=== PATIENT | male | born 1980 | race Caucasian/White ===

== ENCOUNTER 2019-02-01 01:47 | Emergency (ER) | payer OTHER, MEDICAID, SELFPAY ==
[2019-02-01 01:50] VITALS: PULSE 72; RESP 15; TEMP 36.4; O2SAT 99; BMI 32.1
--- NOTE | 2019-02-01 01:58 | ED.DENTAL ---
HPI - Dental/Oral General Stated complaint: RIGHT FACE SWELLING, POSS INFECTED TOOTH Time Seen by Provider: 02/01/19 01:49 Source: patient Mode of arrival: ambulatory Limitations: no limitations History of Present Illness HPI Narrative: Patient is a 38-year-old male here for evaluation of right upper tooth pain and facial swelling. He states that several days ago he cracked a tooth. He states since then he has had pain and swelling. He did take a Vicodin prior to arrival here in the emergency department. He is yet to see a dentist regarding this issue. Related Data Previous Rx's Medication Instructions Recorded clindamycin HCl 300 mg PO Q6H 7 Days #28 cap 02/01/19 Allergies Allergy/AdvReac Type Severity Reaction Status Date / Time Penicillins Allergy Verified 02/01/19 01:59 Review of Systems Constitutional Denies fever(s) and Denies headache(s) ENT Ears, Nose, Mouth, and Throat: Denies headache(s), Denies neck pain and Denies sore throat Comments: Right sided facial swelling Cardiovascular Denies dyspnea Respiratory Denies dyspnea Musculoskeletal Denies neck pain Integumentary/Breasts Denies rash Neurologic Denies headache(s) Hematologic/Lymphatic Denies easy bleeding and Denies easy bruising FORMERLY [facility], [facility] Medical History Healthy adult (Acute) Social History lives independently: Yes Smoking Status: Current every day smoker Social History lives independently: Yes Smoking Status: Current every day smoker Exam Const General: cooperative, comfortable, well developed, well groomed and No acute distress Orientation: alert, awake and oriented x3 HENMT Head: normal to inspection and normocephalic Ears: TM's normal bilaterally Nose: external nose normal Face and sinus: normal facial exam Teeth and gingiva: poor dentition and other (Right upper 1st molar fractured) Throat: posterior oropharynx normal and tonsils normal Resp Effort & Inspection: normal respiratory effort Skin Lesions: no lesions Rashes: no rashes Extrem General: normal to inspection and capillary refill normal Course Orders Ordered: Discontinued Medications Clindamycin HCl (Cleocin) 300 mg PO NOW ONE Stop: 02/01/19 01:55 Last Admin: 02/01/19 02:00 Dose: 300 mg MDM - Dental/Oral MDM Narrative Medical decision making narrative: Patient does have a right upper 1st molar that is fractured. He does have swelling over this area no drainable abscess seen here in the emergency department. Was sent home with a prescription of clindamycin. He is given return precautions. Instructed he needs to follow up with a dentist. He expressed understanding and agreement plan. Discharge Plan Departure Patient Disposition: Home Clinical Impression: Abscess, dental Instructions: Tooth Abscess Activity Restrictions/Additional Instructions: You were given your 1st dose of antibiotics here in the emergency department. Your next dose will be in the morning. You do need to see a dentist. Return to the emergency department for any new or worsening symptoms you can take Tylenol and/or ibuprofen for any discomfort. Prescriptions: New clindamycin HCl 300 mg capsule 300 mg PO Q6H 7 Days Qty: 28 RF: 0 Referrals: Lisette Carpio MD [Primary Care Provider] -
[2019-02-01] MEDS: CLINDAMYCIN 150 MG CAPSULE 300 MG PO (02:00)
== END 2019-02-01 02:05 | disposition home or self-care (01) ==
PROVIDERS: Emergency Provider Emergency Medicine; Family Provider Family Medicine; PCP Family Medicine
DX: K04.7 Periapical abscess without sinus (principal)
CPT/HCPCS: 99282; 99283

== ENCOUNTER 2019-06-15 09:21 | Emergency (ER) | payer OTHER, MEDICAID, SELFPAY ==
[2019-06-15 09:34] VITALS: BP 124/92; PULSE 85; RESP 16; TEMP 36.5; O2SAT 98
--- NOTE | 2019-06-15 10:20 | ED.BACK ---
HPI - Back Pain/Injury General Chief Complaint: Back Pain/Injury Stated Complaint: lower back pain x1 day Time Seen by Provider: 06/15/19 10:03 Source: patient Mode of arrival: Ambulatory Limitations: no limitations History of Present Illness HPI Narrative: Patient is a 38-year-old male who presents with left lumbar low back pain. It started last night fell sleep on the couch when he leaned over and something happened. It remains in 1 spot in his left buttock area and left lower lumbar area. No bowel changes. He has not taken anything for pain. MD Complaint: back pain Onset (ago): hour(s) Duration: constant Related Data Home Medications Medication Instructions Recorded Confirmed fluoxetine 10 mg PO DAILY 06/15/19 06/15/19 fluoxetine 20 mg PO DAILY 06/15/19 06/15/19 Previous Rx's Medication Instructions Recorded cyclobenzaprine 5 mg PO TID PRN #10 tab 06/15/19 Allergies Allergy/AdvReac Type Severity Reaction Status Date / Time Penicillins Allergy Verified 02/01/19 01:59 Review of Systems Review of Systems Narrative: GENERAL: Denies chills,fever HEENT: Denies throat pain RESPIRATORY: Denies dyspnea, cough, wheezing CARDIOVASCULAR: Denies chest pain, palpitations GASTROINTESTINAL: Denies nausea, vomiting MUSCULOSKELETAL: See HPI SKIN: No rash, no laceration, no pruritus NEUROLOGIC: Denies weakness, dizziness, headache, numbness 8 point review of systems is negative except for those stated above and HPI PFSH Social History lives independently: Yes Smoking Status: Current every day smoker Social History lives independently: Yes Smoking Status: Current every day smoker Exam Initial Vital Signs Initial Vital Signs: Vital Signs Temperature 97.7 F 06/15/19 09:34 Pulse Rate 85 06/15/19 09:34 Respiratory Rate 16 06/15/19 09:34 Blood Pressure 124/92 H 06/15/19 09:34 Pulse Oximetry 98 06/15/19 09:34 GENERAL: Well-appearing, well-nourished and in no acute distress. CARDIOVASCULAR: peripheral pulses in tact, cap refill <2 sec RESPIRATORY: No respiratory distress, speaks in full sentences without difficulty EXTREMITIES: Normal range of motion, no clubbing or edema. Neurovascularly intact BACK: No vertebral tenderness no step offs. Tender left lumbar and buttock area pain reproducible with palpation NEUROLOGICAL: Cranial nerves II through XII grossly intact. Normal gait and speech. SKIN: Warm, dry, no petechiae, no rashes or lesions. Course Orders Ordered: Discontinued Medications Ketorolac Tromethamine (Toradol) 30 mg IM NOW ONE Stop: 06/15/19 10:33 Last Admin: 06/15/19 11:20 Dose: 30 mg Documented by: AZRA Vital Signs Vital signs: Vital Signs - 8 hr 06/15/19 11:15 Pulse Rate 64 Respiratory Rate 15 Blood Pressure [Left Arm] 130/90 Pulse Oximetry 98 Discharge Plan Departure Patient Disposition: Home Clinical Impression: Low back pain Qualifiers: Chronicity: acute Back pain laterality: left Sciatica presence: without sciatica Qualified Code(s): M54.5 - Low back pain Discharge Date/Time: 06/15/19 11:30 Instructions: DI for Low Back Pain Activity Restrictions/Additional Instructions: *You have been diagnosed with low back *What to do: Increase activity as tolerated, light stretching is encouraged. No heavy lifting. *Continue to take medications as directed Motrin 800 mg every 8 hours if needed for [id number] pain Flexeril 5 mg every 8 hours if needed for muscle spasms can cause drowsiness do not drive or operate heavy machinery *Follow up with your primary care provider in 2-3 days *Return to ER if you should have increased weakness in the leg worsening pain or any new, worsening or concerning symptoms Prescriptions: New cyclobenzaprine 5 mg tablet 5 mg PO TID PRN (Reason: muscle spasm) Qty: 10 RF: 0 No Action fluoxetine 10 mg tablet 10 mg PO DAILY RF: 0 fluoxetine 20 mg capsule 20 mg PO DAILY RF: 0 Referrals: Lisette Carpio MD [Primary Care Provider] - Stand Alone Forms: Work Release Note
[2019-06-15 11:15] VITALS: BP 130/90; PULSE 64; RESP 15; O2SAT 98
[2019-06-15] MEDS: KETOROLAC 60 MG/2 ML VIAL 30 MG IM (11:20)
== END 2019-06-15 11:30 | disposition home or self-care (01) ==
PROVIDERS: Emergency Provider Emergency Medicine; Family Provider Family Medicine; PCP Family Medicine
DX: M54.5 Low back pain (principal)
CPT/HCPCS: 96372; 99282; 99283; J1885

== ENCOUNTER 2019-07-10 17:26 | Emergency (ER) | payer OTHER, MEDICAID, SELFPAY ==
[2019-07-10 17:35] VITALS: BP 155/95; PULSE 77; RESP 18; TEMP 36.7; O2SAT 96; BMI 33.0
[2019-07-10 18:45] VITALS: BP 150/80; PULSE 72; RESP 18; O2SAT 98
--- NOTE | 2019-07-10 21:07 | ED_ITS ---
HPI - Dental/Oral <SORAIDA Pop - Last Filed: 07/10/19 21:36> General Chief complaint: Dental/Oral Stated complaint: Thinks start of Abcess tooth Time Seen by Provider: 07/10/19 17:49 Source: patient Mode of arrival: Ambulatory Limitations: no limitations History of Present Illness HPI Narrative: This is a 38-year-old male, smoker, who presents to ED with dental pain and possible abscess on left upper upper tooth. Patient reports left-check discomfort and swelling. Patient denies fever, chills, nausea or vomiting, odorous drainage from the tooth. Patient is in process to be seen at [facility] dental clinic at [place] next week. Patient reports he had history of dental abscess and feels as he is having another early dental abscess. Patient has allergies to penicillin and used clindamycin in the past with success. Related Data Home Medications Medication Instructions Recorded Confirmed fluoxetine 10 mg PO DAILY 06/15/19 07/10/19 fluoxetine 20 mg PO DAILY 06/15/19 07/10/19 Previous Rx's Medication Instructions Recorded cyclobenzaprine 5 mg PO TID PRN #10 tab 06/15/19 clindamycin HCl 450 mg PO TID 7 Days #63 cap 07/10/19 Allergies Allergy/AdvReac Type Severity Reaction Status Date / Time Penicillins Allergy Verified 07/10/19 17:38 Review of Systems <SORAIDA Pop - Last Filed: 07/10/19 21:36> Review of Systems Narrative: General: Denies fever, chills, fatigue, malaise, sweats. HEENT: See HPI Respiratory: Denies dyspnea, cough, wheezing, hemoptysis, sputum. Cardiovascular: Denies chest pain, palpitations, orthopnea, edema. Gastrointestinal: Denies nausea, vomiting, abdominal pain, diarrhea, constipation, melena. : Denies dysuria, frequency, incontinence, hematuria, urinary retention. Musculoskeletal: Denies weakness, joint pain or bony pain. Skin: Denies rash, skin lesions, or other. Neurologic: Denies weakness, headache, numbness, change in speech, confusion, seizures, incoordination. Psychiatric: No concerning psychosocial issues. 12-point review of systems is negative except for those stated above. Patient History <SORAIDA Pop - Last Filed: 07/10/19 21:36> Medical History Healthy adult (Acute) Surgical History H/O thyroidectomy (Acute) Social History lives independently: Yes Smoking Status: Current every day smoker tobacco type: cigarettes alcohol intake frequency: 0-2 drinks per day Substance Use Type: marijuana Exam <SORAIDA Pop - Last Filed: 07/10/19 21:36> Narrative Exam Narrative: General appearance: well developed, well nourished, in no acute distress. Head: normocephalic, atraumatic, no scalp lesions, non-tender. Eye: pupil equal, round. EOMI. Nose: nares patent. Oral: mucosa moist. Neck/Thyroid: neck supple, full range of motion, no visible masses. Skin: no suspicious rashes, lesions over visible areas. Warm and dry. Heart: no clubbing, no cyanosis, no edema. Lungs: Breathing even and unlabored. No stridor. No accessory muscles used. Chest: normal shape and expansion. Abdomen: non-obese, non-distended. Neurologic: alert and oriented. Cognitive exam, [employer] and PNS grossly intact on informal exam. Psych: good eye contact, normal affect. Initial Vital Signs Initial Vital Signs: Vital Signs Temperature 98.0 F 07/10/19 17:35 Pulse Rate 77 07/10/19 17:35 Respiratory Rate 18 07/10/19 17:35 Blood Pressure 155/95 H 07/10/19 17:35 Pulse Oximetry 96 07/10/19 17:35 HENKS Face and sinus: edema on the left malar area and tenderness on the left malar area Mouth: oral mucosae normal, tongue normal and moist mucous membranes Teeth and gingiva: caries (L upper 1st molar), gingiva abnormal edematous, diffusely erythematous and tender; without any purulent discharge and poor dentition Throat: posterior oropharynx normal, tonsils normal and uvula midline <Morgan Poole DO - Last Filed: 07/11/19 07:07> Initial Vital Signs Initial Vital Signs: Vital Signs Temperature 98.0 F 07/10/19 17:35 Pulse Rate 77 07/10/19 17:35 Respiratory Rate 18 07/10/19 17:35 Blood Pressure 155/95 H 07/10/19 17:35 Pulse Oximetry 96 07/10/19 17:35 Course <Fredrick SantosSORAIDA graham - Last Filed: 07/10/19 21:36> Vital Signs Vital signs: Vital Signs - 8 hr 07/10/19 17:35 07/10/19 18:45 Temperature 98.0 F Pulse Rate 77 72 Respiratory Rate 18 18 Blood Pressure 155/95 H 150/80 H Pulse Oximetry 96 98 <Morgan Poole DO - Last Filed: 07/11/19 07:07> Vital Signs Vital signs: Vital Signs - 8 hr 07/10/19 17:35 07/10/19 18:45 Temperature 98.0 F Pulse Rate 77 72 Respiratory Rate 18 18 Blood Pressure 155/95 H 150/80 H Pulse Oximetry 96 98 MDM - Dental/Oral <Fredrick RodriguezangMiliSORAIDA graham - Last Filed: 07/10/19 21:36> Differential Diagnosis Differential diagnosis: Likely dental caries, toothache, dental abscess and fracture of tooth Medical Records Attestation: I reviewed the patient's medical records. [facility] Narrative Medical decision making narrative: Patient has fractured to the on left upper 1st molar with poor dentition and swelling to the gum. No drainable abscess noted per exam. Mild swelling and tenderness to palpate on left check. Patient was discharged to home with a prescription of clindamycin for 7 day course. Return precautions were discussed with the patient. Patient advised to follow up with dentist as planned at [facility]. Patient verbalized understanding and agrees with the treatment plan. Discharge Plan Departure Patient Disposition: Home Clinical Impression: Dental infection Discharge Date/Time: 07/10/19 18:45 Instructions: Tooth Abscess Activity Restrictions/Additional Instructions: You have been diagnosed with [dental infection on left upper tooth, Dental caries]. What to do: *Take your medications as directed. Start her antibiotic medications today. Three tabs 3 times a day for next 7 days. Incorporate probiotics if you do have. You can take [id number] Tylenol and or Motrin as needed for discomfort. *Follow up with your primary care provider in 2-3 days, call for an appointment. Please follow up with BEL[facility] castaneda at [place]. Let them know you were seen in the ED and that we asked you to be seen in follow up. *Return to ED if you have any new, worsening, or concerning symptoms, such as [fever, increasing redness, warmth, swelling to left face, chest pain, breathing difficulty, or any acute concerns]. Prescriptions: New clindamycin HCl 150 mg capsule 450 mg PO TID 7 Days Qty: 63 RF: 0 No Action fluoxetine 10 mg tablet 10 mg PO DAILY RF: 0 fluoxetine 20 mg capsule 20 mg PO DAILY RF: 0 cyclobenzaprine 5 mg tablet 5 mg PO TID PRN (Reason: muscle spasm) Qty: 10 RF: 0 Referrals: Lisette Carpio MD [Primary Care Provider] - <Morgan Poole, - Last Filed: 07/11/19 07:07> Sign Out Provider Sign Out Attestation: Dr Poole Co-Sign Statement: I was available for consultation during this patient's emergency department visit. This chart is signed by myself for administrative purposes only. I did not have direct contact with this patient during this visit. They were seen independently by the [facility].
== END 2019-07-10 18:45 | disposition home or self-care (01) ==
PROVIDERS: Emergency Provider Nurse Practitioner Family; Family Provider Family Medicine; PCP Family Medicine
DX: K04.7 Periapical abscess without sinus (principal)
CPT/HCPCS: 99282; 99283

== ENCOUNTER 2021-10-28 10:14 | Emergency (ER) | payer OTHER, MEDICAID, SELFPAY ==
[2021-10-28 11:33] VITALS: BP 152/82; PULSE 74; RESP 16; TEMP 36.7; O2SAT 99; BMI 31.5
--- NOTE | 2021-10-28 13:17 | ED.DENTAL ---
HPI - Dental/Oral <Kel Huerta PA-C - Last Filed: 10/28/21 14:32> General Chief complaint: Dental/Oral Stated complaint: Upper left back of mouth abscess x2days Time Seen by Provider: 10/28/21 13:11 Source: patient Mode of arrival: Ambulatory History of Present Illness HPI Narrative: 40-year-old male presents to the ED complaining of her right sided dental pain and swelling that started yesterday and has gotten increasingly worse lately. He has had previous dental abscesses in the past however the swelling and pain has been increasingly over the past day. He is unable to chew and he has had associated fever. Related Data Home Medications Medication Instructions Recorded Confirmed fluoxetine 10 mg tablet 10 mg PO DAILY 06/15/19 07/10/19 fluoxetine 20 mg capsule 20 mg PO DAILY 06/15/19 07/10/19 Previous Rx's Medication Instructions Recorded cyclobenzaprine 5 mg tablet 5 mg PO TID PRN #10 tab 06/15/19 cephalexin 500 mg capsule 500 mg PO Q8H 7 Days #21 cap 10/28/21 Allergies Allergy/AdvReac Type Severity Reaction Status Date / Time Penicillins Allergy Verified 10/28/21 11:36 Review of Systems <Kel Huerta PA-C - Last Filed: 10/28/21 14:32> Review of Systems ROS Unobtainable: All systems reviewed & are unremarkable except as noted in HPI and below Constitutional Constitutional: Denies chills, Denies fatigue, Denies fever(s), Denies frequent falls, Denies lethargy and Denies weakness Eyes Eyes: Denies change in vision, Denies eye discharge, Denies irritation and Denies loss of vision ENT Ears, Nose, Mouth, and Throat: Denies change in voice, Reports dental pain, Denies dizziness, Denies neck pain, Denies sore throat and Denies throat swelling Cardiovascular Cardiovascular: Denies chest pain, Denies irregular heart rhythm, Denies lightheadedness, Denies palpitations, Denies dyspnea, Denies dyspnea on exertion and Denies orthopnea Respiratory Respiratory: Denies cough, Denies dyspnea, Denies dyspnea on exertion and Denies wheezing Gastrointestinal Gastrointestinal: Denies abdominal pain, Denies change in bowel habits, Denies diarrhea, Denies nausea and Denies vomiting Genitourinary Genitourinary: Denies hematuria, Denies flank pain, Denies urinary incontinence and Denies urinary urgency Musculoskeletal Musculoskeletal: Denies back pain, Denies muscle weakness, Denies neck pain, Denies numbness and Denies tingling Integumentary/Breasts Skin/Breast: Denies pruritus, Denies erythema, Denies rash and Denies wounds Neurologic Neurologic: Denies behavioral changes, Denies confusion, Denies dizziness, Denies frequent falls, Denies loss of vision, Denies numbness, Denies tingling and Denies weakness Psychiatric Psychiatric: Denies anxiety, Denies behavioral changes, Denies confusion, Denies depression, Denies homicidal ideation and Denies suicidal ideation Endocrine Endocrine: Denies fatigue, Denies flushing and Denies palpitations Hematologic/Lymphatic Hematologic/Lymphatic: Denies easy bruising Allergic/Immunologic Allergic/Immunologic: Denies urticaria, Denies throat swelling and Denies wheezing Patient History <Kel Huerta PA-C - Last Filed: 10/28/21 14:32> Medical History (Updated 10/28/21 @ 14:29 by Kel Huerta PA-C) Healthy adult Surgical History H/O thyroidectomy Social History lives independently: Yes Smoking Status: Current every day smoker Smoking Status: Current every day smoker tobacco type: cigarettes alcohol intake frequency: 0-2 drinks per day Substance Use Type: marijuana Exam <Kel Huerta PA-C - Last Filed: 10/28/21 14:32> Initial Vital Signs Initial Vital Signs: Vital Signs Temperature 98.0 F 10/28/21 11:33 Pulse Rate 74 10/28/21 11:33 Respiratory Rate 16 10/28/21 11:33 Blood Pressure 152/82 H 10/28/21 11:33 Pulse Oximetry 99 10/28/21 11:33 Const General: cooperative, healthy appearing and comfortable Nutritional Appearance: average body habitus HENHI Head: normal to inspection Ears: hearing grossly normal bilaterally Nose: external nose normal, nares normal and nasal mucous membranes and turbinates normal Face and sinus: edema and tenderness Mouth: tongue normal, malodorous breath and salivary duct abnormal Throat: posterior oropharynx normal Neck Neck: lymphadenopathy Thyroid: thyroid normal Resp Effort & Inspection: normal respiratory effort and able to speak in complete sentences Auscultation: clear to auscultation bilaterally <DO Payal Hopson Last Filed: 10/29/21 07:27> Initial Vital Signs Initial Vital Signs: Vital Signs Temperature 98.0 F 10/28/21 11:33 Pulse Rate 74 10/28/21 11:33 Respiratory Rate 16 10/28/21 11:33 Blood Pressure 152/82 H 10/28/21 11:33 Pulse Oximetry 99 10/28/21 11:33 Course <Kel Huerta PA-C - Last Filed: 10/28/21 14:32> Orders Ordered: ED Orders 10/28/21 13:20 CT facial bones wo con Stat Vital Signs Vital signs: Vital Signs - 8 hr 10/28/21 11:33 Temperature 98.0 F Pulse Rate 74 Respiratory Rate 16 Blood Pressure 152/82 H Pulse Oximetry 99 <Dc Guerrero DO - Last Filed: 10/29/21 07:27> Orders Ordered: ED Orders 10/28/21 13:20 CT facial bones wo con Stat Vital Signs Vital signs: Vital Signs - 8 hr 10/28/21 11:33 Temperature 98.0 F Pulse Rate 74 Respiratory Rate 16 Blood Pressure 152/82 H Pulse Oximetry 99 MDM - Dental/Oral <MANDY Argueta Last Filed: 10/28/21 14:32> Differential Diagnosis Differential diagnosis: Likely dental caries and toothache Imaging Data CT scan - head: Radiologist's Impression: PROCEDURE:? CT FACIAL BONES WO CON ? INDICATIONS:? dental abscess ? TECHNIQUE:? Helical axial CT of the face was obtained without contrast and reformatted in multiple planes.? Radiation dose reduction was achieved utilizing automated exposure control and/or adjustment of the dose parameters according to patient's size ? COMPARISON:? None. ? FINDINGS: ? Maxillofacial Bones:? The zygomaticomaxillary complex is intact. The pterygoid plates and skull base are unremarkable. No evidence of fracture or lytic lesion. ? Mandible:? The mandible is intact without fracture.? Unremarkable temporomandibular articulation. ? Dentition:? Carious and periodontal disease particularly involves the left last maxillary molar and right last mandibular molar.? Mild artifact limits assessment. ? Soft tissues:? No maxillofacial soft tissue swelling. No radiopaque foreign bodies.? Scattered submental nonenlarged nodes noted, largest is a left level 1 B node measuring 1.3 x 0.9 cm. ? Orbits:? The osseous orbits, globes and ocular muscles unremarkable. ? Sinuses and Mastoid:? Left maxillary sinus mucosal thickening noted.? Remainder of the paranasal sinuses are clear. ? ? IMPRESSION:? ? 1. Advanced carious and periodontal disease without soft tissue dental abscess 2. Scattered nonenlarged maxillofacial lymph nodes in. 3. Left maxillary mucosal sinus disease ? ? ? Approved by: Johnny Mchugh M.D. on 10/28/2021 at 13:13? MDM Narrative Medical decision making narrative: Patient was evaluated and treated for dental pain and swelling. CT shows evidence of dental caries and localized cellulitis but no evidence of any abscess is feasible to treat this patient outpatient with an oral antibiotics which I will sent to patient's pharmacy patient will need follow-up with a dentist for re-evaluation and further treatment. Discharge Plan Departure Patient Disposition: Home Clinical Impression: Dental caries, Toothache Instructions: Tooth Decay, DI for Dental Pain Activity Restrictions/Additional Instructions: You were evaluated today for your dental pain and was found to have just a localized infection and no evidence of any abscess. I sent an antibiotic to [facility] as she requested which should be ready by the time you get there you need to follow-up with the dentist and have a re-evaluation done take the antibiotic as directed until gone he can return to the ED as needed if you feel your symptoms are worse. Prescriptions: New cephalexin 500 mg capsule 500 mg PO Q8H 7 Days Qty: 21 0RF No Action fluoxetine 10 mg tablet 10 mg PO DAILY 0RF Label Comments: TAKE 1 TABLET BY MOUTH IN THE MORNING . NEEDS APPOINTMENT. DAILY DOSE30 MG. Rx Instructions: with 20mg- total dose 30 mg fluoxetine 20 mg capsule 20 mg PO DAILY 0RF Label Comments: TAKE 1 CAPSULE BY MOUTH IN THE MORNING . TOTAL DAILY DOSE IS 30 MG. NEEDS APPOINTMENT. Rx Instructions: with 10mg. total dose 30mg cyclobenzaprine 5 mg tablet 5 mg PO TID PRN (Reason: muscle spasm) Qty: 10 0RF Referrals: Lisette Carpio MD [Primary Care Provider] - <Dc Guerrero DO - Last Filed: 10/29/21 07:27> Cosign ED Attending Cosignature Attestation: I was immediately available in the department for consultation. This documentation has been reviewed and I agree with assessment and plan. Supervised by Dc Guerrero, DO
--- NOTE | 2021-10-28 13:20 | DI.CT.S_ITS ---
PROCEDURE: CT FACIAL BONES WO CON INDICATIONS: dental abscess TECHNIQUE: Helical axial CT of the face was obtained without contrast and reformatted in multiple planes. Radiation dose reduction was achieved utilizing automated exposure control and/or adjustment of the dose parameters according to patient's size COMPARISON: None. FINDINGS: Maxillofacial Bones: The zygomaticomaxillary complex is intact. The pterygoid plates and skull base are unremarkable. No evidence of fracture or lytic lesion. Mandible: The mandible is intact without fracture. Unremarkable temporomandibular articulation. Dentition: Carious and periodontal disease particularly involves the left last maxillary molar and right last mandibular molar. Mild artifact limits assessment. Soft tissues: No maxillofacial soft tissue swelling. No radiopaque foreign bodies. Scattered submental nonenlarged nodes noted, largest is a left level 1 B node measuring 1.3 x 0.9 cm. Orbits: The osseous orbits, globes and ocular muscles unremarkable. Sinuses and Mastoid: Left maxillary sinus mucosal thickening noted. Remainder of the paranasal sinuses are clear. IMPRESSION: 1. Advanced carious and periodontal disease without soft tissue dental abscess 2. Scattered nonenlarged maxillofacial lymph nodes in. 3. Left maxillary mucosal sinus disease Approved by: Johnny Mchugh M.D. on 10/28/2021 at 13:13
[2021-10-28 14:38] VITALS: BP 124/72; PULSE 68; RESP 14; O2SAT 99
== END 2021-10-28 15:15 | disposition home or self-care (01) ==
PROVIDERS: Emergency Provider Physician Assistant; Family Provider Family Medicine; PCP Family Medicine
DX: K02.9 Dental caries, unspecified (principal); L03.811 Cellulitis of head [any part, except face]; F17.210 Nicotine dependence, cigarettes, uncomplicated; Z88.0 Allergy status to penicillin
CPT/HCPCS: 70486; 99283; 99284

== ENCOUNTER 2023-08-06 10:07 | Emergency (ER) | payer OTHER, MEDICAID, SELFPAY ==
[2023-08-06 10:10] VITALS: BP 170/92; PULSE 80; RESP 16; TEMP 36.4; O2SAT 98; BMI 30.8
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
--- NOTE | 2023-08-06 11:19 | ED_ITS ---
HPI - Back Pain/Injury General Chief Complaint: Back Pain/Injury Stated Complaint: sciatic nerve is messing with me Time Seen by Provider: 08/06/23 10:35 History of Present Illness HPI Narrative: 42-year-old male presents for evaluation low back pain. He reports bending over to put his pants on this morning having an acute episode of pain in the right low back with some radiation into the back of the right leg. The pain does not extend beyond the knee and he denies numbness tingling or weakness in the leg. Pain is exacerbated by bending and twisting and relieved by sitting. He has a longstanding history of intermittent flares of low back pain without significant radiculopathy that have always resolved on their own. He has not ever seen physical therapy. He denies upper back pain chest pain shortness of breath cough or abdominal pain. He denies any trouble urinating or passing his bowels. He is no numbness around his perineum. He does smoke about half pack of cigarettes per day. 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. Related Data Home Medications Medication Instructions Recorded Confirmed fluoxetine 10 mg tablet 10 mg PO DAILY 06/15/19 07/10/19 fluoxetine 20 mg capsule 20 mg PO DAILY 06/15/19 07/10/19 Previous Rx's Medication Instructions Recorded cyclobenzaprine 5 mg tablet 5 mg PO TID PRN muscle spasm #10 06/15/19 tabs Allergies Allergy/AdvReac Type Severity Reaction Status Date / Time Penicillins Allergy Verified 10/28/21 11:36 Review of Systems Review of Systems Narrative: GENERAL: Denies chills, fatigue, malaise, fever, sweats. HEENT: Denies sinus pain, ear pain, sore throat, difficulty swallowing, dizziness. RESPIRATORY: Denies dyspnea, cough, wheezing, hemoptysis, sputum. CARDIOVASCULAR: Denies chest pain, palpitations, orthopnea, edema, GASTROINTESTINAL: Denies nausea, vomiting, abdominal pain, diarrhea, constipation, melena. : Denies dysuria, frequency, incontinence, hematuria, urinary retention. MUSCULOSKELETAL: See HPI NEUROLOGIC: Denies weakness, headache, numbness, change in speech, confusion, seizures, incoordination. PSYCHIATRIC: No concerning psychosocial issues. 12 point review of systems is negative except for those stated above Patient History Medical History (Updated 08/07/23 @ 11:02 by Samra Burton PA-C) Healthy adult Surgical History H/O thyroidectomy Social History lives independently: Yes Smoking Status: Current every day smoker Smoking Status: Current every day smoker tobacco type: cigarettes alcohol intake frequency: 0-2 drinks per day Substance Use Type: marijuana Exam Narrative Exam Narrative: Well-developed male in no acute distress. He is able to walk without difficulty across the room. Toe and heel walk without deficit. Flexion and extension intact at the waist. He is only mildly tender over the right low paraspinal muscles around L4-L5. He is got 5/5 strength in his lower extremities bilaterally. Reflexes of the lower extremities normal. Initial Vital Signs Initial Vital Signs: Vital Signs Temperature 97.6 F 08/06/23 10:10 Pulse Rate 80 08/06/23 10:10 Respiratory Rate 16 08/06/23 10:10 Blood Pressure 170/92 H 08/06/23 10:10 Pulse Oximetry 98 08/06/23 10:10 Oxygen Delivery Method Room Air 08/06/23 10:10 Course Orders Ordered: Discontinued Medications Ketorolac Tromethamine (Ketorolac 30 Mg/Ml Vial) 30 mg IM NOW ONE Stop: 08/06/23 11:20 Last Admin: 08/06/23 11:23 Dose: 30 mg Documented By: MARV Vital Signs Vital signs: Vital Signs - 8 hr 08/06/23 10:10 Temperature 97.6 F Pulse Rate 80 Respiratory Rate 16 Blood Pressure 170/92 H Pulse Oximetry 98 Oxygen Delivery Method Room Air MDM - Back Pain/Injury Differential Diagnosis Differential diagnosis: Likely lumbar radiculopathy, sciatica and strain of lumbar region MDM Narrative Medical decision making narrative: This is a 42-year-old male smoker with an acute exacerbation of back pain that is familiar to him. Exam is reassuring and no imaging done today. We discussed at length the importance of physical therapy as well as ergonomic issues at work. He is advised to embark on walking exercises or dental aerobics at the gym and other back health maintenance issues. Also spoke to him about the role of smoking in low back pain encouraged him to cut back or quit altogether. He states understanding of the plan and agrees. This patient was discussed with Dr. salamanca who agrees with the assessment and plan. Discharge Plan Departure Patient Disposition: Home Clinical Impression: Strain of lumbar region Qualifiers: Encounter type: subsequent encounter Qualified Code(s): S39.012D - Strain of muscle, fascia and tendon of lower back, subsequent encounter Instructions: DI for Low Back Pain, DI for Back Pain With Sciatica, Exercise May Reduce Risk of Low Back Pain Activity Restrictions/Additional Instructions: Your back pain is not concerning for significant disc or nerve injury. The radiation of pain into your thigh can be sciatic irritation or radiation of pain from the muscles. I believe with some good self-care, some regular exercise, and consultation with a physical therapist, you may prove your overall back health. Today we are giving you a dose of an anti-inflammatory drug very similar to ibuprofen. For better relief it is beneficial to continue to take an anti-inflammatory drug until your symptoms are well controlled. Take 600 mg of ibuprofen after dinner tonight then continue with 600 mg 3 times a day with food for 5-10 days. If you should have a significant increase in pain or radiation into your leg or difficulty with urination or passing her bowels please return to the emergency department. Otherwise please establish with your primary care provider for ongoing advice and management of your back pain. It was a pleasure to take care of you today. Prescriptions: No Action fluoxetine 10 mg tablet 10 mg PO DAILY Patient Comments: TAKE 1 TABLET BY MOUTH IN THE MORNING . NEEDS APPOINTMENT. DAILY DOSE30 MG. Rx Instructions: with 20mg- total dose 30 mg fluoxetine 20 mg capsule 20 mg PO DAILY Patient Comments: TAKE 1 CAPSULE BY MOUTH IN THE MORNING . TOTAL DAILY DOSE IS 30 MG. NEEDS APPOINTMENT. Rx Instructions: with 10mg. total dose 30mg cyclobenzaprine 5 mg tablet 5 mg PO TID PRN (Reason: muscle spasm) Qty: 10 0RF Referrals: Lisette Carpio MD [Primary Care Provider] - Stand Alone Forms: Patient Portal/API
[2023-08-06] MEDS: KETOROLAC 30 MG/ML VIAL IM (11:23)
--- NOTE | 2023-08-06 11:24 | ED.BACK ---
HPI - Back Pain/Injury General Chief Complaint: Back Pain/Injury Stated Complaint: sciatic nerve is messing with me Time Seen by Provider: 08/06/23 10:35 History of Present Illness HPI Narrative: 42-year-old male who presents for evaluation of right lower back pain. This morning he was bending over to put on a pair of pants when he had an acute episode of pain in his right low back that radiated into the back of his thigh. Pain did not radiate beyond his knee. He describes it as dull and achy, about 5/10, that is exacerbated with twisting movements or raising his legs. He denies numbness or tingling in the lower extremities, he is had no issue with bowel or bladder, and he denies pain in the upper back or the chest or the abdomen. He reports off and on exacerbations of low back pain that have not required surgery or imaging. He is never had physical therapy, nor has he seen anyone specifically for back pain besides a visit back in 2019 for a similar exacerbation. He does smoke 1/2 pack per day. 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 Related Data Home Medications Medication Instructions Recorded Confirmed fluoxetine 10 mg tablet 10 mg PO DAILY 06/15/19 07/10/19 fluoxetine 20 mg capsule 20 mg PO DAILY 06/15/19 07/10/19 Previous Rx's Medication Instructions Recorded cyclobenzaprine 5 mg tablet 5 mg PO TID PRN muscle spasm #10 06/15/19 tabs Allergies Allergy/AdvReac Type Severity Reaction Status Date / Time Penicillins Allergy Verified 10/28/21 11:36 Review of Systems Review of Systems Narrative: GENERAL: Denies chills, fatigue, malaise, fever, sweats. RESPIRATORY: Denies dyspnea, cough, wheezing, hemoptysis, sputum. CARDIOVASCULAR: Denies chest pain, palpitations, orthopnea, edema, GASTROINTESTINAL: Denies nausea, vomiting, abdominal pain, diarrhea, constipation, melena. : Denies dysuria, frequency, incontinence, hematuria, urinary retention. MUSCULOSKELETAL: See HPI NEUROLOGIC: Denies weakness, headache, numbness, change in speech, confusion, seizures, incoordination. PSYCHIATRIC: No concerning psychosocial issues. 12 point review of systems is negative except for those stated above Musculoskeletal Musculoskeletal: Reports system reviewed and no additional complaints, except as documented Patient History Medical History Healthy adult Surgical History H/O thyroidectomy Social History lives independently: Yes Smoking Status: Current every day smoker Smoking Status: Current every day smoker tobacco type: cigarettes alcohol intake frequency: 0-2 drinks per day Substance Use Type: marijuana Exam Narrative Exam Narrative: Musculoskeletal: Back without deformities spine straight, no tenderness around the lumbar paraspinal muscles. He can flex and extend the spine without deficits. Toe and heel walk intact. Leg and calf muscles 5/5 strength against resistance. Lungs: Clear to auscultation bilaterally. Heart regular rate and rhythm, no murmurs rubs gallops. Abdomen: Soft nondistended nontender. Reflexes: 2+ bilateral at knees. Initial Vital Signs Initial Vital Signs: Vital Signs Temperature 97.6 F 08/06/23 10:10 Pulse Rate 80 08/06/23 10:10 Respiratory Rate 16 08/06/23 10:10 Blood Pressure 170/92 H 08/06/23 10:10 Pulse Oximetry 98 08/06/23 10:10 Oxygen Delivery Method Room Air 08/06/23 10:10 Const General: cooperative and comfortable Course Orders Ordered: Discontinued Medications Ketorolac Tromethamine (Ketorolac 30 Mg/Ml Vial) 30 mg IM NOW ONE Stop: 08/06/23 11:20 Last Admin: 08/06/23 11:23 Dose: 30 mg Documented By: ES Vital Signs Vital signs: Vital Signs - 8 hr 08/06/23 10:10 08/06/23 11:37 Temperature 97.6 F Pulse Rate 80 61 Respiratory Rate 16 Blood Pressure 170/92 H 152/97 H Pulse Oximetry 98 98 Oxygen Delivery Method Room Air Room Air MDM - Back Pain/Injury Differential Diagnosis Differential diagnosis: Likely lumbar radiculopathy, sciatica and strain of lumbar region Condition is:: Well Controlled Chronic Condition is having:: Mild excerbation Medical Records Attestation: I reviewed the patient's medical records. MDM Narrative Medical decision making narrative: [age] year old male smoker with a history of intermittent exacerbations of low back pain mostly on the right who presents today with a similar scenario. The initiation of pain was due to a low traumatic incident of putting on his pants. Exam supports no significant radicular or neuropathic signs. No signs or symptoms of cauda equina syndrome. No concerns for a thoracic etiology. We discussed the importance of reducing his smoking and also consulting with physical therapist for a regular back program and core strengthening. We discussed the ergonomics of his job and how to better support his back by not twisting and bending at the same time and using his legs more for squatting and lifting. We also discussed the importance of taking an anti-inflammatory on a consistent basis until he is feeling much better. Case was discussed with Dr. Gallagher who concurs with assessment and plan. Discharge Plan Departure Patient Disposition: Home Clinical Impression: Strain of lumbar region Instructions: DI for Low Back Pain, DI for Back Pain With Sciatica, Exercise May Reduce Risk of Low Back Pain Activity Restrictions/Additional Instructions: Your back pain is not concerning for significant disc or nerve injury. The radiation of pain into your thigh can be sciatic irritation or radiation of pain from the muscles. I believe with some good self-care, some regular exercise, and consultation with a physical therapist, you may prove your overall back health. Today we are giving you a dose of an anti-inflammatory drug very similar to ibuprofen. For better relief it is beneficial to continue to take an anti-inflammatory drug until your symptoms are well controlled. Take 600 mg of ibuprofen after dinner tonight then continue with 600 mg 3 times a day with food for 5-10 days. If you should have a significant increase in pain or radiation into your leg or difficulty with urination or passing her bowels please return to the emergency department. Otherwise please establish with your primary care provider for ongoing advice and management of your back pain. It was a pleasure to take care of you today. Prescriptions: No Action fluoxetine 10 mg tablet 10 mg PO DAILY Patient Comments: TAKE 1 TABLET BY MOUTH IN THE MORNING . NEEDS APPOINTMENT. DAILY DOSE30 MG. Rx Instructions: with 20mg- total dose 30 mg fluoxetine 20 mg capsule 20 mg PO DAILY Patient Comments: TAKE 1 CAPSULE BY MOUTH IN THE MORNING . TOTAL DAILY DOSE IS 30 MG. NEEDS APPOINTMENT. Rx Instructions: with 10mg. total dose 30mg cyclobenzaprine 5 mg tablet 5 mg PO TID PRN (Reason: muscle spasm) Qty: 10 0RF Referrals: Lisette Carpio MD [Primary Care Provider] - Stand Alone Forms: Patient Portal/API
[2023-08-06 11:37] VITALS: BP 152/97; PULSE 61; O2SAT 98
== END 2023-08-06 11:37 | disposition home or self-care (01) ==
PROVIDERS: Emergency Provider Physician Assistant; Family Provider Family Medicine; PCP Family Medicine
DX: S39.012A Strain of muscle, fascia and tendon of lower back, initial encounter (principal); X50.9XXA Other and unspecified overexertion or strenuous movements or postures, initial encounter
CPT/HCPCS: 96372; 99283; J1885